=== PATIENT | female | born 2000 | race Two or more races ===

== ENCOUNTER 2020-03-13 01:59 | Day surgery (SDC) | payer BC ==
[2020-03-13] MEDS ORDERED: Ondansetron 4 MG/2 ML SDV IVPUSH ONE (02:06)
[2020-03-13] MEDS ORDERED: Sodium Chloride 0.9% 10 ML Syringe FLUSH PRN ×2 (02:06→05:35)
[2020-03-13] MEDS ORDERED: Sodium Chloride 0.9% 2.5 ML Syringe FLUSH PRN ×2 (02:06→05:35)
[2020-03-13] MEDS ORDERED: Sodium Chloride 0.9% 1,000 ML IV ONE (02:06)
--- NOTE | 2020-03-13 02:12 | EDM.PDOC ---
ED HPI GENERAL MEDICAL PROBLEM - General Chief Complaint: Abdominal Pain Stated Complaint: ABDOMINAL PAIN Time Seen by Provider: 03/13/20 02:01 - History of Present Illness INITIAL COMMENTS - FREE TEXT/NARRATIVE: HISTORY AND PHYSICAL: History of present illness: This is a 19-year-old female who is 2 para 0 who presents to the ER today secondary to suprapubic abdominal pain similar to her prior urinary tract infections. Patient reports that her last menstrual period was approximately 2 weeks ago. Patient reports that last month she had a spontaneous miscarriage. Patient reports that the pain started approximately 9 PM is mild and has been slowly getting worse. Patient reports that she had dysuria prior to arrival. Patient denies any frequency urgency. Patient denies any recent fevers, shakes, chills. Patient admits to nausea but no vomiting or diarrhea. Patient denies any constipation had normal bowel movement earlier today. Patient has any vaginal discharge or vaginal bleeding. Patient present she had sex approximately 2 days ago without any pain or discomfort. Patient reports normal appetite and ate dinner normally tonight. Review of systems: As per history of present illness and below otherwise all systems reviewed and negative. Past medical history: As per history of present illness and as reviewed below otherwise noncontributory. Surgical history: As per history of present illness and as reviewed below otherwise noncontributory. Social history: No reported history of drug or alcohol abuse. Family history: As per history of present illness and as reviewed below otherwise noncontributory. Physical exam: Constitutional: Patient is oriented to person, place, and time. Appears well- developed and well-nourished. No distress. HEENT: Moist mucous membranes Head: Normocephalic and atraumatic Eyes: Right eye exhibits no discharge. Left eye exhibits no discharge. No scleral icterus Neck: Normal range of motion. No tracheal deviation present. Cardiovascular: Normal rate and regular rhythm. Pulmonary: Effort normal, no respiratory distress. Abd: Soft, nondistended, no rebound/guarding, no psoas or obturator signs, no tenderness at Mcberney's point, no Mata's sign. Pt does not present with an exam that would be consistent with an acute surgical abdomen at this time. Tenderness to palpation suprapubic greater than left lower quadrant. Musculoskeletal: Normal range of motion Neurologic: Alert and oriented to person, place and time. Skin: [place], warm and dry. Psychiatric: Normal mood and affect. Behavior is normal. Judgment and thought content normal. Nursing note and vital signs have been reviewed Assessment and plan: Patient's beta-hCG came back at 1400. Patient's old labs were reviewed and appears that she had a beta-hCG in December that was 200. The beta-hCG was repeated and was down to 40. Patient reports that she had never gotten ultrasound at that time. She reports that she has had a period approximately 1 month after her miscarriage that was normal. She reports that she had a another period approximately 1 week ago that was heavier than usual with cramping that she reports felt like her prior miscarriage. Patient's ultrasound reveals no IUP, significant amount of complex free fluid in the cul-de-sac, no definite ectopic within the tubes but given her beta-hCG level suspicion for ectopic exists. 4:40 AM: Discussed with OB doctor seasonal package handler regarding assistance with likely ectopic . will be in route to evaluate patient in ER. Patient admitted to the service of Dr. Alejandro. Lower Abdomen Pain Score (Numeric/FACES): 8 - Related Data Allergies Allergy/AdvReac Type Severity Reaction Status Date / Time No Known Allergies Allergy Verified 03/13/20 02:23 Home Meds: Home Meds . [No Known Home Meds] 03/13/20 [History] Social & Family History - Tobacco Use Smoking Status *Q: Never Smoker Second Hand Smoke Exposure: No - Caffeine Use Caffeine Use: Reports: Soda - Recreational Drug Use Recreational Drug Use: No ED ROS GENERAL - Review of Systems Review Of Systems: Comprehensive ROS is negative, except as noted in HPI. ED EXAM, GENERAL - Physical Exam Exam: See Below Course - Vital Signs Last Recorded V/S: Last Vital Signs Temp 99 F 03/13/20 05:52 Pulse 94 03/13/20 05:52 Resp 14 03/13/20 05:52 BP 109/66 03/13/20 05:52 Pulse Ox 98 03/13/20 05:52 - Orders/Labs/Meds Orders: Active Orders 24 hr Category Date Time Status Patient Status [ADT] Routine ADT 03/13/20 05:35 Active Antiembolic Devices [RC] PER UNIT ROUTINE Care 03/13/20 05:36 Active Peripheral IV Care [RC] PRN Care 03/13/20 05:35 Active Verify Patient Consent Obtain [RC] PER UNIT ROUTINE Care 03/13/20 05:35 Active Vital Signs [RC] PER UNIT ROUTINE Care 03/13/20 05:35 Active Nothing per Oral Now Diet [DIET] Diet 03/13/20 Breakfast Active Lactated Ringers [Ringers, Lactated] 1,000 ml Med 03/13/20 05:45 Active IV ASDIRECTED Sodium Chloride 0.9% [Normal Saline] Med 03/13/20 05:35 Active 10 ml IV ASDIRECTED PRN Sodium Chloride 0.9% [Saline Flush] Med 03/13/20 02:06 Active 10 ml FLUSH ASDIRECTED PRN Sodium Chloride 0.9% [Saline Flush] Med 03/13/20 05:35 Active 10 ml FLUSH ASDIRECTED PRN Sodium Chloride 0.9% [Saline Flush] Med 03/13/20 02:06 Active 2.5 ml FLUSH ASDIRECTED PRN Sodium Chloride 0.9% [Saline Flush] Med 03/13/20 05:35 Active 2.5 ml FLUSH ASDIRECTED PRN Peripheral IV Insertion Adult [OM.PC] Urgent Oth 03/13/20 05:35 Ordered Saline Lock Insert [OM.PC] Stat Oth 03/13/20 02:06 Ordered Sequential Compression Device [OM.PC] Per Unit Routine Oth 03/13/20 05:35 Ordered Resuscitation Status Routine Resus Stat 03/13/20 05:35 Ordered Medication Orders Lactated Ringer's (Ringers, Lactated) 1,000 mls @ 125 mls/hr IV ASDIRECTED RYDER Sodium Chloride (Saline Flush) 10 ml FLUSH ASDIRECTED PRN PRN Reason: Keep Vein Open Sodium Chloride (Saline Flush) 2.5 ml FLUSH ASDIRECTED PRN PRN Reason: Keep Vein Open Sodium Chloride (Saline Flush) 10 ml FLUSH ASDIRECTED PRN PRN Reason: Keep Vein Open Sodium Chloride (Saline Flush) 2.5 ml FLUSH ASDIRECTED PRN PRN Reason: Keep Vein Open Sodium Chloride (Normal Saline) 10 ml IV ASDIRECTED PRN PRN Reason: IV Use Labs: Laboratory Tests 03/13/20 03/13/20 03/13/20 Range/Units 02:01 02:07 02:07 WBC 13.69 H (4.0-11.0) K/uL RBC 4.03 L (4.30-5.90) M/uL Hgb 12.2 (12.0-16.0) g/dL Hct 36.6 (36.0-46.0) % MCV 90.8 (80.0-98.0) fL MCH 30.3 (27.0-32.0) pg MCHC 33.3 (31.0-37.0) g/dL RDW Std Deviation 41.9 (28.0-62.0) fl RDW Coeff of Mohamud 13 (11.0-15.0) % Plt Count 289 (150-400) K/uL MPV 10.00 (7.40-12.00) fL Neut % (Auto) 63.2 (48.0-80.0) % Lymph % (Auto) 22.1 (16.0-40.0) % [place] % (Auto) 11.5 (0.0-15.0) % Eos % (Auto) 2.8 (0.0-7.0) % Baso % (Auto) 0.4 (0.0-1.5) % Neut # (Auto) 8.7 H (1.4-5.7) K/uL Lymph # (Auto) 3.0 H (0.6-2.4) K/uL [place] # (Auto) 1.6 H (0.0-0.8) K/uL Eos # (Auto) 0.4 (0.0-0.7) K/uL Baso # (Auto) 0.1 (0.0-0.1) K/uL Nucleated RBC % 0.0 /100WBC Nucleated RBCs # 0 K/uL Sodium 137 (136-145) mmol/L Potassium 3.5 (3.5-5.1) mmol/L Chloride 103 (98-107) mmol/L Carbon Dioxide 24.2 (21.0-32.0) mmol/L BUN 9 (7.0-18.0) mg/dL Creatinine 0.8 (0.6-1.0) mg/dL Est Cr Clr Drug Dosing 100.43 mL/min Estimated GFR (MDRD) > 60.0 ml/min Glucose 101 (74-106) mg/dL Calcium 8.1 L (8.5-10.1) mg/dL Total Bilirubin 0.3 (0.2-1.0) mg/dL AST 14 L (15-37) IU/L ALT 16 (14-63) IU/L Alkaline Phosphatase 67 (46-116) U/L Total Protein 7.6 (6.4-8.2) g/dL Albumin 4.2 (3.4-5.0) g/dL Globulin 3.4 (2.6-4.0) g/dL Albumin/Globulin Ratio 1.2 (0.9-1.6) Lipase 113 (73-393) U/L HCG, Quant mIU/mL Urine Color YELLOW Urine Appearance CLEAR Urine pH 6.5 (5.0-8.0) Ur Specific [place] 1.025 (1.001-1.035) Urine Protein NEGATIVE (NEGATIVE) mg/dL Urine Glucose (UA) NEGATIVE (NEGATIVE) mg/dL Urine Ketones TRACE H (NEGATIVE) mg/dL Urine Occult Blood NEGATIVE (NEGATIVE) Urine Nitrite NEGATIVE (NEGATIVE) Urine Bilirubin NEGATIVE (NEGATIVE) Urine Urobilinogen 1.0 (<2.0) EU/dL Ur Leukocyte Esterase NEGATIVE (NEGATIVE) COVID-19 (TABITHA) (NEGATIVE) Blood Type Antibody Screen 03/13/20 03/13/20 03/13/20 Range/Units 02:07 02:07 04:26 WBC (4.0-11.0) K/uL RBC (4.30-5.90) M/uL Hgb (12.0-16.0) g/dL Hct (36.0-46.0) % MCV (80.0-98.0) fL MCH (27.0-32.0) pg MCHC (31.0-37.0) g/dL RDW Std Deviation (28.0-62.0) fl RDW Coeff of Mohamud (11.0-15.0) % Plt Count (150-400) K/uL MPV (7.40-12.00) fL Neut % (Auto) (48.0-80.0) % Lymph % (Auto) (16.0-40.0) % [place] % (Auto) (0.0-15.0) % Eos % (Auto) (0.0-7.0) % Baso % (Auto) (0.0-1.5) % Neut # (Auto) (1.4-5.7) K/uL Lymph # (Auto) (0.6-2.4) K/uL [place] # (Auto) (0.0-0.8) K/uL Eos # (Auto) (0.0-0.7) K/uL Baso # (Auto) (0.0-0.1) K/uL Nucleated RBC % /100WBC Nucleated RBCs # K/uL Sodium (136-145) mmol/L Potassium (3.5-5.1) mmol/L Chloride (98-107) mmol/L Carbon Dioxide (21.0-32.0) mmol/L BUN (7.0-18.0) mg/dL Creatinine (0.6-1.0) mg/dL Est Cr Clr Drug Dosing mL/min Estimated GFR (MDRD) ml/min Glucose (74-106) mg/dL Calcium (8.5-10.1) mg/dL Total Bilirubin (0.2-1.0) mg/dL AST (15-37) IU/L ALT (14-63) IU/L Alkaline Phosphatase (46-116) U/L Total Protein (6.4-8.2) g/dL Albumin (3.4-5.0) g/dL Globulin (2.6-4.0) g/dL Albumin/Globulin Ratio (0.9-1.6) Lipase (73-393) U/L HCG, Quant 1341.0 mIU/mL Urine Color Urine Appearance Urine pH (5.0-8.0) Ur Specific [place] (1.001-1.035) Urine Protein (NEGATIVE) mg/dL Urine Glucose (UA) (NEGATIVE) mg/dL Urine Ketones (NEGATIVE) mg/dL Urine Occult Blood (NEGATIVE) Urine Nitrite (NEGATIVE) Urine Bilirubin (NEGATIVE) Urine Urobilinogen (<2.0) EU/dL Ur Leukocyte Esterase (NEGATIVE) COVID-19 (TABITHA) NEGATIVE (NEGATIVE) Blood Type A POSITIVE Antibody Screen NEGATIVE Meds: Medications Generic Name Dose Route Start Last Admin Trade Name Freq PRN Reason Stop Dose Admin Lactated Ringer's 1,000 mls @ 125 mls/hr 03/13/20 05:45 Ringers, Lactated IV ASDIRECTED RYDER Sodium Chloride 10 ml 03/13/20 02:06 Saline Flush FLUSH ASDIRECTED PRN Keep Vein Open Sodium Chloride 2.5 ml 03/13/20 02:06 Saline Flush FLUSH ASDIRECTED PRN Keep Vein Open Sodium Chloride 10 ml 03/13/20 05:35 Saline Flush FLUSH ASDIRECTED PRN Keep Vein Open Sodium Chloride 2.5 ml 03/13/20 05:35 Saline Flush FLUSH ASDIRECTED PRN Keep Vein Open Sodium Chloride 10 ml 03/13/20 05:35 Normal Saline IV ASDIRECTED PRN IV Use Discontinued Medications Generic Name Dose Route Start Last Admin Trade Name Freq PRN Reason Stop Dose Admin Dexamethasone Confirm 03/13/20 05:53 Dexamethasone Administered 03/13/20 05:54 Dose 20 mg .ROUTE .STK-MED ONE Fentanyl Confirm 03/13/20 05:54 Sublimaze Administered 03/13/20 05:55 Dose 250 mcg .ROUTE .STK-MED ONE Hydromorphone HCl 0.5 mg 03/13/20 03:20 03/13/20 03:44 Dilaudid IVPUSH 03/13/20 03:21 0.5 mg ONETIME ONE Administration Sodium Chloride 1,000 mls @ 999 mls/hr 03/13/20 02:06 03/13/20 02:13 Normal Saline IV 03/13/20 03:06 999 mls/hr .Bolus ONE Administration Ketorolac Tromethamine 30 mg 03/13/20 02:06 03/13/20 02:18 Toradol IM 03/13/20 02:07 Not Given ONETIME ONE Ketorolac Tromethamine 30 mg 03/13/20 02:18 03/13/20 02:20 Toradol IVPUSH 03/13/20 02:19 30 mg ONETIME ONE Administration Midazolam HCl Confirm 03/13/20 05:53 Versed 1 Mg/Ml Administered 03/13/20 05:54 Dose 2 mg .ROUTE .STK-MED ONE Ondansetron HCl 4 mg 03/13/20 02:06 03/13/20 02:14 Zofran IVPUSH 03/13/20 02:07 4 mg ONETIME ONE Administration Ondansetron HCl Confirm 03/13/20 05:53 Zofran Administered 03/13/20 05:54 Dose 8 mg .ROUTE .STK-MED ONE Propofol Confirm 03/13/20 05:53 Diprivan 20 Ml Administered 03/13/20 05:54 Dose 200 mg .ROUTE .STK-MED ONE Rocuronium [place] Confirm 03/13/20 05:53 Rocuronium [place] Administered 03/13/20 05:54 Dose 50 mg .ROUTE .STK-MED ONE Departure - Departure Time of Disposition: 06:06 Disposition: Admitted As Inpatient 66 Condition: Fair Clinical Impression: Ectopic - Discharge Information Sepsis Event Note (ED) - Evaluation Sepsis Screening Result: No Definite Risk - Focused Exam Vital Signs: Vital Signs Temp Pulse Resp BP Pulse Ox 03/13/20 05:52 99 F 94 14 109/66 98 03/13/20 04:58 66 14 96/48 L 99 03/13/20 04:10 84 18 96/53 L 97 03/13/20 03:34 108 H 18 103/57 L 99 03/13/20 02:30 99 107/58 L 03/13/20 02:03 99.1 F 124 H 18 98/77 97 - My Orders Last 24 Hours: My Active Orders 03/13/20 02:06 Sodium Chloride 0.9% [Saline Flush] 10 ml FLUSH ASDIRECTED PRN Sodium Chloride 0.9% [Saline Flush] 2.5 ml FLUSH ASDIRECTED PRN Saline Lock Insert [OM.PC] Stat - Assessment/Plan Last 24 Hours: My Active Orders 03/13/20 02:06 Sodium Chloride 0.9% [Saline Flush] 10 ml FLUSH ASDIRECTED PRN Sodium Chloride 0.9% [Saline Flush] 2.5 ml FLUSH ASDIRECTED PRN Saline Lock Insert [OM.PC] Stat
[2020-03-13] MEDS: Ketorolac 15 MG/ML SDV IM ONE ×2 (02:14→02:18)
[2020-03-13] MEDS ORDERED: Ketorolac 30 MG/ML SDV IVPUSH ONE (02:18)
[2020-03-13 02:40] LABS: BLOOD UREA NITROGEN,BUN 9 mg/dL (7.0-18.0); CARBON DIOXIDE,CO2 24.2 mmol/L (21.0-32.0); CHLORIDE,CL 103 mmol/L (98-107); GLUCOSE RANDOM 101 mg/dL (74-106); LIPASE 113 U/L (73-393); POTASSIUM,K 3.5 mmol/L (3.5-5.1); SODIUM,NA 137 mmol/L (136-145)
[2020-03-13] MEDS ORDERED: HYDROmorphone 1 MG/ML Syringe IVPUSH ONE (03:20)
--- NOTE | 2020-03-13 04:26 | US ---
INDICATION: Left lower quadrant pain, beta HCG 1400 TECHNIQUE: Ultrasound OB pelvis transvaginal. Real time escalante scale imaging of the pelvis was performed. COMPARISON: None FINDINGS: Sonographic imaging demonstrates no evidence of intrauterine . No fluid or debris in the endometrial canal. The cervix is closed. The myometrium appears normal. The ovaries are of normal size. Large amount of complex free fluid in the cul-de-sac. IMPRESSION: No evidence of a intrauterine . No fluid or debris in the endometrial canal. Large amount of complex free fluid in the cul-de-sac. No definitive evidence for ectopic although given the beta HCG levels and lack of intrauterine , ectopic cannot be excluded. Dictated by Margarito Chang MD @ 03/13/2020 4:24:52 AM Dictated by: Margarito Chang MD @ 03/13/2020 04:24:57 (Electronically Signed)
--- NOTE | 2020-03-13 05:27 | PCM.CONS ---
H&P History of Present Illness - General Date of Service: 03/13/20 Source of Information: Patient History Limitations: Reports: No Limitations - History of Present Illness Initial Comments - Free Text/Narative: Patient reports onset of cramping around 9:30 last night. Increased around 11, to the point where patient had difficulty walking due to the pain. Had heavy bleeding 1.5 weeks ago, lasting 5-6 days, similar to miscarriage in December, along with painful cramping. Denies fevers. Denies history of STI. Lower Abdomen Pain Score (Numeric/FACES): 8 - Related Data Allergies/Adverse Reactions: Allergies Allergy/AdvReac Type Severity Reaction Status Date / Time No Known Allergies Allergy Verified 03/13/20 02:23 Home Medications: Home Meds . 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 MOUNTER History: Reports: Endometriosis, , Spontaneous (x2) Other OB/BYN History: miscarriage 1 mo ago Social & Family History - Family History Family Medical History: Noncontributory - Tobacco Use Smoking Status *Q: Never Smoker Second Hand Smoke Exposure: No - Caffeine Use Caffeine Use: Reports: Soda - Recreational Drug Use Recreational Drug Use: No H&P Review of Systems - Review of Systems: Review Of Systems: See Below General: Reports: No Symptoms HEENT: Reports: No Symptoms Pulmonary: Reports: No Symptoms Cardiovascular: Reports: No Symptoms Gastrointestinal: Reports: Abdominal Pain Genitourinary: Reports: No Symptoms Musculoskeletal: Reports: No Symptoms Skin: Reports: No Symptoms Psychiatric: Reports: No Symptoms Neurological: Reports: No Symptoms Hematologic/Lymphatic: Reports: No Symptoms Immunologic: Reports: No Symptoms Exam - Exam Exam: See Below - Vital Signs Vital Signs: Last Vital Signs Temp 37.3 C 03/13/20 02:03 Pulse 66 03/13/20 04:58 Resp 14 03/13/20 04:58 BP 96/48 L 03/13/20 04:58 Pulse Ox 99 03/13/20 04:58 Weight: 56.245 kg - Exam General: Alert, Oriented, 4 Neck: Supple Lungs: Clear to Auscultation, Normal Respiratory Effort Cardiovascular: Regular Rate, Regular Rhythm GI/Abdominal Exam: No Distention, Tender (bilateral lower quadrants) (Female) Exam: Deferred Extremities: Non-Tender, No Pedal Edema Skin: Warm, Dry, Intact Neuro Extensive - Mental Status: Alert, Oriented x3, Normal Mood/Affect Psychiatric: Alert, Normal Affect, Normal Mood - Patient Data Lab Results Last 24 hrs: Laboratory Results - last 24 hr 03/13/20 03/13/20 03/13/20 Range/Units 02:01 02:07 02:07 WBC 13.69 H (4.0-11.0) K/uL RBC 4.03 L (4.30-5.90) M/uL Hgb 12.2 (12.0-16.0) g/dL Hct 36.6 (36.0-46.0) % MCV 90.8 (80.0-98.0) fL MCH 30.3 (27.0-32.0) pg MCHC 33.3 (31.0-37.0) g/dL RDW Std Deviation 41.9 (28.0-62.0) fl RDW Coeff of Mohamud 13 (11.0-15.0) % Plt Count 289 (150-400) K/uL MPV 10.00 (7.40-12.00) fL Neut % (Auto) 63.2 (48.0-80.0) % Lymph % (Auto) 22.1 (16.0-40.0) % [place] % (Auto) 11.5 (0.0-15.0) % Eos % (Auto) 2.8 (0.0-7.0) % Baso % (Auto) 0.4 (0.0-1.5) % Neut # (Auto) 8.7 H (1.4-5.7) K/uL Lymph # (Auto) 3.0 H (0.6-2.4) K/uL [place] # (Auto) 1.6 H (0.0-0.8) K/uL Eos # (Auto) 0.4 (0.0-0.7) K/uL Baso # (Auto) 0.1 (0.0-0.1) K/uL Nucleated RBC % 0.0 /100WBC Nucleated RBCs # 0 K/uL Sodium 137 (136-145) mmol/L Potassium 3.5 (3.5-5.1) mmol/L Chloride 103 (98-107) mmol/L Carbon Dioxide 24.2 (21.0-32.0) mmol/L BUN 9 (7.0-18.0) mg/dL Creatinine 0.8 (0.6-1.0) mg/dL Est Cr Clr Drug Dosing 100.43 mL/min Estimated GFR (MDRD) > 60.0 ml/min Glucose 101 (74-106) mg/dL Calcium 8.1 L (8.5-10.1) mg/dL Total Bilirubin 0.3 (0.2-1.0) mg/dL AST 14 L (15-37) IU/L ALT 16 (14-63) IU/L Alkaline Phosphatase 67 (46-116) U/L Total Protein 7.6 (6.4-8.2) g/dL Albumin 4.2 (3.4-5.0) g/dL Globulin 3.4 (2.6-4.0) g/dL Albumin/Globulin Ratio 1.2 (0.9-1.6) Lipase 113 (73-393) U/L HCG, Quant mIU/mL Urine Color YELLOW Urine Appearance CLEAR Urine pH 6.5 (5.0-8.0) Ur Specific [place] 1.025 (1.001-1.035) Urine Protein NEGATIVE (NEGATIVE) mg/dL Urine Glucose (UA) NEGATIVE (NEGATIVE) mg/dL Urine Ketones TRACE H (NEGATIVE) mg/dL Urine Occult Blood NEGATIVE (NEGATIVE) Urine Nitrite NEGATIVE (NEGATIVE) Urine Bilirubin NEGATIVE (NEGATIVE) Urine Urobilinogen 1.0 (<2.0) EU/dL Ur Leukocyte Esterase NEGATIVE (NEGATIVE) COVID-19 (TABITHA) (NEGATIVE) Blood Type Antibody Screen 03/13/20 03/13/20 03/13/20 Range/Units 02:07 02:07 04:26 WBC (4.0-11.0) K/uL RBC (4.30-5.90) M/uL Hgb (12.0-16.0) g/dL Hct (36.0-46.0) % MCV (80.0-98.0) fL MCH (27.0-32.0) pg MCHC (31.0-37.0) g/dL RDW Std Deviation (28.0-62.0) fl RDW Coeff of Mohamud (11.0-15.0) % Plt Count (150-400) K/uL MPV (7.40-12.00) fL Neut % (Auto) (48.0-80.0) % Lymph % (Auto) (16.0-40.0) % [place] % (Auto) (0.0-15.0) % Eos % (Auto) (0.0-7.0) % Baso % (Auto) (0.0-1.5) % Neut # (Auto) (1.4-5.7) K/uL Lymph # (Auto) (0.6-2.4) K/uL [place] # (Auto) (0.0-0.8) K/uL Eos # (Auto) (0.0-0.7) K/uL Baso # (Auto) (0.0-0.1) K/uL Nucleated RBC % /100WBC Nucleated RBCs # K/uL Sodium (136-145) mmol/L Potassium (3.5-5.1) mmol/L Chloride (98-107) mmol/L Carbon Dioxide (21.0-32.0) mmol/L BUN (7.0-18.0) mg/dL Creatinine (0.6-1.0) mg/dL Est Cr Clr Drug Dosing mL/min Estimated GFR (MDRD) ml/min Glucose (74-106) mg/dL Calcium (8.5-10.1) mg/dL Total Bilirubin (0.2-1.0) mg/dL AST (15-37) IU/L ALT (14-63) IU/L Alkaline Phosphatase (46-116) U/L Total Protein (6.4-8.2) g/dL Albumin (3.4-5.0) g/dL Globulin (2.6-4.0) g/dL Albumin/Globulin Ratio (0.9-1.6) Lipase (73-393) U/L HCG, Quant 1341.0 mIU/mL Urine Color Urine Appearance Urine pH (5.0-8.0) Ur Specific [place] (1.001-1.035) Urine Protein (NEGATIVE) mg/dL Urine Glucose (UA) (NEGATIVE) mg/dL Urine Ketones (NEGATIVE) mg/dL Urine Occult Blood (NEGATIVE) Urine Nitrite (NEGATIVE) Urine Bilirubin (NEGATIVE) Urine Urobilinogen (<2.0) EU/dL Ur Leukocyte Esterase (NEGATIVE) COVID-19 (TABITHA) NEGATIVE (NEGATIVE) Blood Type A POSITIVE Antibody Screen NEGATIVE Result Diagrams: 03/13/20 02:07 03/13/20 02:07 Sepsis Event Note - Evaluation Sepsis Screening Result: No Definite Risk - Focused Exam Vital Signs: Vital Signs Temp Pulse Resp BP Pulse Ox 03/13/20 04:58 66 14 96/48 L 99 03/13/20 04:10 84 18 96/53 L 97 03/13/20 03:34 108 H 18 103/57 L 99 03/13/20 02:30 99 107/58 L 03/13/20 02:03 37.3 C 124 H 18 98/77 97 Date Exam was Performed: 03/13/20 Time Exam was Performed: 05:18 *Q Meaningful Use (ADM) - VTE *Q VTE Mechanical Contraindications *Q: At Risk for Falls VTE Pharmacological Contraindications *Q: Active Hemorrhage VTE Anticoagulation Contraindications: Med/TX Not Indicated/Need - VTE Risk Assess *Q Each Risk Factor Represents 1 Point: or , Less than 1 Month Total Score 1 Point Risk Factors: 1 Each Risk Factor Represents 2 Points: None Total Score 2 Point Risk Factors: 0 Each Risk Factor Represents 3 Points: None Total Score 3 Point Risk Factors: 0 Each Risk Factor Represents 5 Points: None Total Score 5 Point Risk Factors: 0 Venous Thromboembolism Risk Factor Score *Q: 1 - Stroke *Q Aspirin Contraindications Stroke *Q: Other (Use Special Inst) (not indicated) Anticoagulation Contraindications Stroke *Q: Med/TX Not Indicated/Need Antithrombotic Contraindications Stroke *Q: Med/TX Not Indicated/Need Thrombolytic/Fibrinolytic Contraindications Stroke *Q: Med/TX Not Indicated/Need Statin Contraindications Stroke *Q: Med/TX Not Indicated/Need Rehabilitation Assessment Contraindication *Q: Med/tx not indicated/need - AMI *Q Aspirin Contraindications AMI *Q: Med/TX Not Indicated/Need Thrombolytic/Fibrinolytic Contraindications IV (AMI) *Q: Med/tx not indicated/need Statin Contraindications AMI *Q: Med/TX Not Indicated/Need Consult PN Assessment/Plan Procedures: Procedures BLOOD TYPING SEROLOGIC ABO (12/17/19) BLOOD TYPING SEROLOGIC RH(D) (12/17/19) CHORIONIC GONADOTROPIN TEST (12/20/19) CHYLMD TRACH DNA AMP PROBE (03/02/18) COMPLETE CBC W/AUTO DIFF WBC (12/10/18) CULTURE SCREEN ONLY (12/10/18) INFLUENZA ASSAY W/OPTIC (12/10/18) N.GONORRHOEAE DNA AMP PROB (03/02/18) RBC ANTIBODY SCREEN (12/17/19) ROUTINE VENIPUNCTURE (12/10/18) SARS-COV2 COVID-19 AMP PRB (12/06/19) STREP A AG IA (05/27/16) STREP A ASSAY W/OPTIC (12/10/18) URINALYSIS AUTO W/SCOPE (03/01/18) URINE CULTURE/COLONY COUNT (03/01/18) URINE TEST (03/01/18) X-RAY EXAM CHEST 2 VIEWS (10/29/18) (1) Ectopic SNOMED Code(s): 97206338 Code(s): O00.90 - UNSPECIFIED ECTOPIC WITHOUT INTRAUTERINE Current Visit: Yes Problem List Initiated/Reviewed/Updated: Yes Plan: 19yo with suspected ruptured ectopic based on US images. Discussed at hCG of 1400, I cannot be certain that she does not have an intrauterine , and that by performing surgery, could result in a m iscarriage. However, given the amount of complex free fluid in the pelvis, I suspect she has a ruptured ectopic , which requires surgery for patient stabilization and removal if actively bleeding. Appears to have corpus luteum of left ovary. Reviewed while most of her pain is on the left side, either fallopian tube could be involved. If actively bleeding, will plan to remove fallopian tube. Will plan to retain ovaries unless grossly abnormal. Plan for diagnostic laparoscopy, with possible unilateral or bilateral salpingectomy or oophorectomy, and any indicated procedures. Reviewed risks, including but not limited to, infection, bleeding, injury to surrounding organs/vessels/nerves, anesthesia complications, and . The patient voiced understanding and agreed to proceed with recommended surgery. I spoke with the patient's mother, with the patient's permission, to update on p gabbi of care. All questions answered.
[2020-03-13] MEDS ORDERED: Sodium Chloride 0.9% 10 ML SDV IV PRN (05:35)
[2020-03-13] MEDS ORDERED: Lactated Ringers 1,000 ML IV SCH (05:45)
[2020-03-13] MEDS ORDERED: Propofol 200 MG/20 ML SDV ONE (05:53)
[2020-03-13] MEDS ORDERED: Midazolam 1 MG/ML 2 ML SDV ONE (05:53)
[2020-03-13] MEDS ORDERED: Ondansetron 4 MG/2 ML SDV ONE (05:53)
[2020-03-13] MEDS ORDERED: Rocuronium Bromide 50 MG/5 ML Syringe ONE (05:53)
[2020-03-13] MEDS ORDERED: Dexamethasone 4 MG/ML 5 ML MDV ONE (05:53)
[2020-03-13] MEDS ORDERED: fentaNYL 250 MCG/5 ML SDV ONE ×2 (05:54→07:05)
[2020-03-13] MEDS ORDERED: Sugammadex Sodium 200 MG/2 ML VIAL ONE (06:06)
--- NOTE | 2020-03-13 06:45 | PCM.PREANE ---
Preanesthetic Assessment - Procedure Proposed Procedure: laproscopic oophrectomy for ectopic - Anesthesia/Transfusion/Family Hx Anesthesia History: No Prior Anesthesia Family History of Anesthesia Reaction: No Transfusion History: No Prior Transfusion(s) - Review of Systems General: No Symptoms Pulmonary: No Symptoms Cardiovascular: No Symptoms Gastrointestinal: No Symptoms Neurological: No Symptoms Other: Reports: None - Physical Assessment NPO Status Date: 03/12/20 NPO Status Time: 23:30 Vital Signs: Last Vital Signs Temp 99 F 03/13/20 05:52 Pulse 94 03/13/20 05:52 Resp 14 03/13/20 05:52 BP 109/66 03/13/20 05:52 Pulse Ox 98 03/13/20 05:52 Height: 5 ft 6 in Weight: 56.245 kg ASA Class: 1E Mental Status: Alert & Oriented x3 Dentition: Reports: Normal Dentition Thyro-Mental Finger Breadths: 3 Mouth Opening Finger Breadths: 3 ROM/Head Extension: Full Lungs: Clear to Auscultation, Normal Respiratory Effort Cardiovascular: Regular Rate, Regular Rhythm - Lab Values: Laboratory Last Values WBC 13.69 K/uL (4.0-11.0) H 03/13/20 02:07 RBC 4.03 M/uL (4.30-5.90) L 03/13/20 02:07 Hgb 12.2 g/dL (12.0-16.0) 03/13/20 02:07 Hct 36.6 % (36.0-46.0) 03/13/20 02:07 MCV 90.8 fL (80.0-98.0) 03/13/20 02:07 MCH 30.3 pg (27.0-32.0) 03/13/20 02:07 MCHC 33.3 g/dL (31.0-37.0) 03/13/20 02:07 RDW Std Deviation 41.9 fl (28.0-62.0) 03/13/20 02:07 RDW Coeff of Mohamud 13 % (11.0-15.0) 03/13/20 02:07 Plt Count 289 K/uL (150-400) 03/13/20 02:07 MPV 10.00 fL (7.40-12.00) 03/13/20 02:07 Neut % (Auto) 63.2 % (48.0-80.0) 03/13/20 02:07 Lymph % (Auto) 22.1 % (16.0-40.0) 03/13/20 02:07 [place] % (Auto) 11.5 % (0.0-15.0) 03/13/20 02:07 Eos % (Auto) 2.8 % (0.0-7.0) 03/13/20 02:07 Baso % (Auto) 0.4 % (0.0-1.5) 03/13/20 02:07 Neut # (Auto) 8.7 K/uL (1.4-5.7) H 03/13/20 02:07 Lymph # (Auto) 3.0 K/uL (0.6-2.4) H 03/13/20 02:07 [place] # (Auto) 1.6 K/uL (0.0-0.8) H 03/13/20 02:07 Eos # (Auto) 0.4 K/uL (0.0-0.7) 03/13/20 02:07 Baso # (Auto) 0.1 K/uL (0.0-0.1) 03/13/20 02:07 Nucleated RBC % 0.0 /100WBC 03/13/20 02:07 Nucleated RBCs # 0 K/uL 03/13/20 02:07 Sodium 137 mmol/L (136-145) 03/13/20 02:07 Potassium 3.5 mmol/L (3.5-5.1) 03/13/20 02:07 Chloride 103 mmol/L (98-107) 03/13/20 02:07 Carbon Dioxide 24.2 mmol/L (21.0-32.0) 03/13/20 02:07 BUN 9 mg/dL (7.0-18.0) 03/13/20 02:07 Creatinine 0.8 mg/dL (0.6-1.0) 03/13/20 02:07 Est Cr Clr Drug Dosing 100.43 mL/min 03/13/20 02:07 Estimated GFR (MDRD) > 60.0 ml/min 03/13/20 02:07 Glucose 101 mg/dL (74-106) 03/13/20 02:07 Calcium 8.1 mg/dL (8.5-10.1) L 03/13/20 02:07 Total Bilirubin 0.3 mg/dL (0.2-1.0) 03/13/20 02:07 AST 14 IU/L (15-37) L 03/13/20 02:07 ALT 16 IU/L (14-63) 03/13/20 02:07 Alkaline Phosphatase 67 U/L (46-116) 03/13/20 02:07 Total Protein 7.6 g/dL (6.4-8.2) 03/13/20 02:07 Albumin 4.2 g/dL (3.4-5.0) 03/13/20 02:07 Globulin 3.4 g/dL (2.6-4.0) 03/13/20 02:07 Albumin/Globulin Ratio 1.2 (0.9-1.6) 03/13/20 02:07 Lipase 113 U/L (73-393) 03/13/20 02:07 HCG, Quant 1341.0 mIU/mL 03/13/20 02:07 Urine Color YELLOW 03/13/20 02:01 Urine Appearance CLEAR 03/13/20 02:01 Urine pH 6.5 (5.0-8.0) 03/13/20 02:01 Ur Specific [place] 1.025 (1.001-1.035) 03/13/20 02:01 Urine Protein NEGATIVE mg/dL (NEGATIVE) 03/13/20 02:01 Urine Glucose (UA) NEGATIVE mg/dL (NEGATIVE) 03/13/20 02:01 Urine Ketones TRACE mg/dL (NEGATIVE) H 03/13/20 02:01 Urine Occult Blood NEGATIVE (NEGATIVE) 03/13/20 02:01 Urine Nitrite NEGATIVE (NEGATIVE) 03/13/20 02:01 Urine Bilirubin NEGATIVE (NEGATIVE) 03/13/20 02:01 Urine Urobilinogen 1.0 EU/dL (<2.0) 03/13/20 02:01 Ur Leukocyte Esterase NEGATIVE (NEGATIVE) 03/13/20 02:01 COVID-19 (TABITHA) NEGATIVE (NEGATIVE) 03/13/20 04:26 Blood Type A POSITIVE 03/13/20 02:07 Antibody Screen NEGATIVE 03/13/20 02:07 - Allergies Allergies/Adverse Reactions: Allergies Allergy/AdvReac Type Severity Reaction Status Date / Time No Known Allergies Allergy Verified 03/13/20 02:23 - Blood Blood Available: Yes Product(s) Available: PRBC - Anesthesia Plan Pre-Op Medication Ordered: None - Acknowledgements Anesthesia Type Planned: General Anesthesia Pt an Appropriate Candidate for the Planned Anesthesia: Yes Alternatives and Risks of Anesthesia Discussed w Pt/Guardian: Yes Pt/Guardian Understands and Agrees with Anesthesia Plan: Yes PreAnesthesia Questionnaire HEENT History: Reports: None Cardiovascular History: Reports: None Respiratory History: Reports: None Gastrointestinal History: Reports: None Genitourinary History: Reports: None 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 , Endometriosis, , Spontaneous (x2) LMP (Approximate): Other OB/BYN History: miscarriage 1 mo ago Musculoskeletal History: Reports: None Neurological History: Reports: None Psychiatric History: Reports: None Endocrine/Metabolic History: Reports: None Hematologic History: Reports: None Immunologic History: Reports: None Oncologic (Cancer) History: Reports: None Dermatologic History: Reports: None - Infectious Disease History Infectious Disease History: Reports: None - Past Surgical History Head Surgeries/Procedures: Reports: None - Past Imaging History Past Imaging History: Reports: None - SUBSTANCE USE Smoking Status *Q: Current Every Day Smoker Tobacco Use Within Last Twelve Months: Vaping Second Hand Smoke Exposure: No Recreational Drug Use History: No - HOME MEDS Home Medications: Home Meds . [No Known Home Meds] 03/13/20 [History] - CURRENT (IN HOUSE) MEDS Current Meds: Current Medications Lactated Ringer's (Ringers, Lactated) 1,000 mls @ 125 mls/hr IV ASDIRECTED RYDER Sodium Chloride (Saline Flush) 10 ml FLUSH ASDIRECTED PRN PRN Reason: Keep Vein Open Sodium Chloride (Saline Flush) 2.5 ml FLUSH ASDIRECTED PRN PRN Reason: Keep Vein Open Sodium Chloride (Saline Flush) 10 ml FLUSH ASDIRECTED PRN PRN Reason: Keep Vein Open Sodium Chloride (Saline Flush) 2.5 ml FLUSH ASDIRECTED PRN PRN Reason: Keep Vein Open Sodium Chloride (Normal Saline) 10 ml IV ASDIRECTED PRN PRN Reason: IV Use Discontinued Medications Dexamethasone (Dexamethasone) Confirm Administered Dose 20 mg .ROUTE .STK-MED ONE Stop: 03/13/20 05:54 Fentanyl (Sublimaze) Confirm Administered Dose 250 mcg .ROUTE .STK-MED ONE Stop: 03/13/20 05:55 Hydromorphone HCl (Dilaudid) 0.5 mg IVPUSH ONETIME ONE Stop: 03/13/20 03:21 Last Admin: 03/13/20 03:44 Dose: 0.5 mg Documented by: Sodium Chloride (Normal Saline) 1,000 mls @ 999 mls/hr IV .Bolus ONE Stop: 03/13/20 03:06 Last Admin: 03/13/20 02:13 Dose: 999 mls/hr Documented by: Ketorolac Tromethamine (Toradol) 30 mg IM ONETIME ONE Stop: 03/13/20 02:07 Last Admin: 03/13/20 02:18 Dose: Not Given Documented by: Ketorolac Tromethamine (Toradol) 30 mg IVPUSH ONETIME ONE Stop: 03/13/20 02:19 Last Admin: 03/13/20 02:20 Dose: 30 mg Documented by: Midazolam HCl (Versed 1 Mg/Ml) Confirm Administered Dose 2 mg .ROUTE .STK-MED ONE Stop: 03/13/20 05:54 Ondansetron HCl (Zofran) 4 mg IVPUSH ONETIME ONE Stop: 03/13/20 02:07 Last Admin: 03/13/20 02:14 Dose: 4 mg Documented by: Ondansetron HCl (Zofran) Confirm Administered Dose 8 mg .ROUTE .STK-MED ONE Stop: 03/13/20 05:54 Propofol (Diprivan 20 Ml) Confirm Administered Dose 200 mg .ROUTE .STK-MED ONE Stop: 03/13/20 05:54 Rocuronium Mcbrides (Rocuronium Mcbrides) Confirm Administered Dose 50 mg .ROUTE .STK-MED ONE Stop: 03/13/20 05:54 Sugammadex Sodium (Bridion) Confirm Administered Dose 200 mg .ROUTE .STK-MED ONE Stop: 03/13/20 06:07
--- NOTE | 2020-03-13 07:48 | PCM.OPNOTE ---
- General Post-Op/Procedure Note Date of Surgery/Procedure: 03/13/20 Operative Procedure(s): Diagnostic laparoscopy. Evacuation of hemoperitoneum. Left fimbriectomy Findings: Moderate amount of blood and clot in pelvis. Ectopic with active bleeding appearing to be extruding from left fimbria. Normal-appearing uterus, bilateral ovaries, and right fallopian tube. Pre Op Diagnosis: Suspected ruptured ectopic Post-Op Diagnosis: Suspected ruptured ectopic Anesthesia Technique: General ET Tube Primary Surgeon: Lorena Alejandro Anesthesia Provider: Castro Tinajero Canal Structure Operator: Mago Amos Pathology: Left fimbria and products of conception Fluid Replacement, Intraop: 1,200 EBL in mLs: 350 Complications: None Condition: Fair
--- NOTE | 2020-03-13 10:57 | PCM48HPAN ---
Post Anesthesia Note - EVALUATION WITHIN 48HRS OF ANESTHETIC Vital Signs in Normal Range: Yes Patient Participated in Evaluation: Yes Respiratory Function Stable: Yes Airway Patent: Yes Cardiovascular Function Stable: Yes Hydration Status Stable: Yes Pain Control Satisfactory: Yes Nausea and Vomiting Control Satisfactory: Yes Mental Status Recovered: Yes Vital Signs: Last Vital Signs Temp 97.5 F 03/13/20 08:25 Pulse 80 03/13/20 08:55 Resp 18 03/13/20 08:55 BP 128/75 03/13/20 08:55 Pulse Ox 99 03/13/20 08:55
--- NOTE | 2020-03-13 15:34 | OR ---
SURGEON: Lorena Alejandro MD DATE OF PROCEDURE: 03/13/2020 PREOPERATIVE DIAGNOSES: 1. A 19-year-old G3, P0-0-2-0. 2. Suspected ruptured ectopic . POSTOPERATIVE DIAGNOSES: 1. A 19-year-old G3, P0-0-2-0. 2. Suspected ruptured ectopic . PROCEDURE: Diagnostic laparoscopy, evacuation of hemoperitoneum, left fimbriectomy. ANESTHESIA: General endotracheal by . PRIMARY SURGEON: Lorena Alejandro MD. FIELD PIPE LINES SUPERVISOR: Mago Amos, medical student. IV FLUIDS: 1200 mL of LR. ESTIMATED BLOOD LOSS: 350 mL. URINE OUTPUT: Bladder drained prior to procedure. INDICATIONS: This is a 19-year-old G3, P0-0-2-0, who presented to the ER with complaints of left lower quadrant pain for several hours. On presentation, she was found to be tachycardic with heart rate in the 120s. Blood pressure was normal. CBC was ordered and her hemoglobin was 12.2. A beta hCG was 1400. Pelvic ultrasound was obtained, which did not show a definite ectopic , however, was concerning given no intrauterine and a complex fluid in the pelvis consistent with blood. I was consulted and discussed with the patient that due to concern for ruptured ectopic , the recommendation would be to undergo laparoscopic removal. The risks and benefits of the procedure were reviewed with the patient. The patient was taken to the operating room. DESCRIPTION OF PROCEDURE: The patient was taken to the operating room, where general anesthesia was obtained without difficulty. She was placed in dorsal lithotomy position with legs in Yellofin stirrups. Bladder was drained with a Rahman catheter. She was prepared and draped in the normal sterile fashion. A Graves speculum was inserted into the vagina. A [employer] uterine manipulator was inserted into the cervix. Surgeon's gloves were changed. Attention was then turned to the laparoscopic portion of the procedure. A 5 mm infraumbilical incision was made with a scalpel. A 5 mm trocar was inserted into the abdomen under direct laparoscopic visualization. A right lower quadrant 5 mm port was inserted under direct visualization. The majority of the hemoperitoneum was evacuated with suction auto claims adjuster. Bilateral tubes were evaluated and it appeared that the left fimbria had active bleeding with extrusion of products of conception. A decision was made to proceed with a left fimbriectomy. A left lower quadrant 12 mm port was inserted under direct laparoscopic visualization. The LigaSure was used to clamp, coagulate, and transect the left fimbria at suspected ectopic . The laparoscopic catch bag was inserted into 5 mm port and used to remove the left fimbria and clots with product of conception. The pelvis was thoroughly irrigated and inspected and was hemostatic. The fascia of 12-mm port was closed with 0 Vicryl suture using Guerrero-Ruby. The skin was closed with 4-0 Monocryl in subcuticular fashion. The incision was covered with bandage. The Graves speculum was re-inserted into the vagina. Hulka uterine manipulator was removed and hemostasis was noted. The speculum was removed from vagina. Patient was awakened and taken to the recovery room in stable condition. All sponge, lap, and instrument counts were correct x2. [id number] / MODL /[id number] MTDD
== END 2020-03-13 09:20 | disposition home or self-care (01) ==
LOC: MW.ED 01:59 → MW.SDS 05:28
PROVIDERS: ATTEND Obstetrics & Gynecology
DX: O00.102 Left tubal pregnancy without intrauterine pregnancy (principal); F17.290 Nicotine dependence, other tobacco product, uncomplicated; R00.0 Tachycardia, unspecified; Z11.59 Encounter for screening for other viral diseases
CPT/HCPCS: 36415; 59151; 76801; 80053; 81003; 83690; 84702; 85025; 86850; 86900; 86901; 87635; 96361; 96374; 96375; 99285; J1100; J1170; J1885; J2250; J2405; J2704; J3010; J3490; J7030; 00840; 88305; 99284; U0002

== ENCOUNTER 2021-04-10 17:36 | Emergency (ER) | payer BC ==
--- NOTE | 2021-04-10 20:12 | EDM.PDOC ---
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 She has a little bit of cramping as well. She is a Ab1 which was an ectopic and surgically removed. She had an ultrasound on 31 March of this year that showed an intrauterine and by the dates of an ultrasound she says she is 7 weeks and 2 days today. She not weak and dizzy or sick. The patient used to vape Juul vape but no longer does so. She is not diabetic. She is unvaccinated for COVID-19. This patient was seen and evaluated during the 2019 SARS-CoV-2 novel coronavirus pandemic period. Community viral transmission is ongoing at time of this encounter and the emergency department is operating under pandemic response procedures. Review of systems: As per history of present illness and below otherwise all systems reviewed and negative. Past medical history: As per history of present illness and as reviewed below otherwise noncontributory. Surgical history: As per history of present illness and as reviewed below otherwise noncontributory. Social history: No reported history of drug or alcohol abuse. Family history: As per history of present illness and as reviewed below otherwise noncontributory. Physical exam: Constitutional - well developed, well-nourished and in no acute distress HEENT - normocephalic, no evidence of trauma - external nose and mouth normal - no mass in neck and no JVD - mucosae moist EYES - full EOM, PERRL, no icterus - no evidence of inflammation, injection, or drainage Respiratory - no respiratory distress, equal bilateral expansion, lungs clear to auscultation and no abnormal lung sounds Cardiovascular - Regular Rhythm with S1 and S2 appreciated and no murmur, gallop or rub. GI - abdomen soft without distension or organomegaly - normal bowel sounds - no guard or rebound Musculoskeletal no gross deformity of long bones or joints - no tenderness, swelling or edema Neurologic - Alert and oriented times four - CN II-XII grossly intact - motor sensory and coordination symmetrically normal Psychiatric - appropriate mood and affect with normal thought content Hematologic - No petechiae or purpura - mucosa appropriate color and sclera not pale - normal nail bed color and refill Integument - no rash or evidence of trauma - normal turgor Diagnostics: [] Therapeutics: [] Impression: [] Plan: [] Definitive disposition and diagnosis as appropriate pending reevaluation and review of above. 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 , Endometriosis, , Spontaneous Other TRIM AND BURR OPERATOR History: miscarriage 1 mo ago Musculoskeletal History: Reports: None Neurological History: Reports: None Psychiatric History: Reports: None Endocrine/Metabolic History: Reports: None Hematologic History: Reports: None Immunologic History: Reports: None Oncologic (Cancer) History: Reports: None Dermatologic History: Reports: None - Infectious Disease History Infectious Disease History: Reports: None - Past Surgical History Head Surgeries/Procedures: Reports: None Female Surgical History: Reports: Other (See Below) - Past Imaging History Past Imaging History: Reports: None Social & Family History - Family History Family Medical History: No Pertinent Family History - Tobacco Use Tobacco Use Status *Q: Never Tobacco User - Caffeine Use Caffeine Use: Reports: None - Recreational Drug Use Recreational Drug Use: No ED ROS GENERAL - Review of Systems Review Of Systems: Comprehensive ROS is negative, except as noted in HPI. ED EXAM, GENERAL - Physical Exam Exam: See Below Free Text/Narrative:: My physical exam is in the HPI Course - Vital Signs Text/Narrative:: 2108 hrs. laboratory results were not reported but the patient has eloped. She did not let us know. Last Recorded V/S: Last Vital Signs Temp 36.9 C 04/10/21 19:40 Pulse 76 04/10/21 19:40 Resp 18 04/10/21 19:40 BP 100/57 L 04/10/21 19:40 Pulse Ox 100 04/10/21 19:40 Departure - Departure Time of Disposition: 21:07 Disposition: Eloped 07 Condition: Good Clinical Impression: Threatened - Discharge Information Instructions: Threatened Miscarriage, [id number] Referrals: Manny Bajwa MD [Primary Care Provider] - Forms: ED Department Discharge Additional Instructions: [facility] [address] [place] [id number] [facility] [address] [place] [id number] The following information is given to patients seen in the emergency department who are being discharged to home. This information is to outline your options for follow-up care. We provide all patients seen in our emergency department with a follow-up referral. The need for follow-up, as well as the timing and circumstances, are variable depending upon the specifics of your emergency department visit. If you don't have a primary care physician on staff, we will provide you with a referral. We always advise you to contact your personal physician following an emergency department visit to inform them of the circumstance of the visit and for follow-up with them and/or the need for any referrals to a consulting specialist. The emergency department will also refer you to a specialist when appropriate. This referral assures that you have the opportunity for follow-up care with a specialist. All of these measure are taken in an effort to provide you with optimal care, which includes your follow-up. Under all circumstances we always encourage you to contact your private physician who remains a resource for coordinating your care. When calling for follow-up care, please make the office aware that this follow-up is from your recent emergency room visit. If for any reason you are refused follow-up, please contact the [facility] Emergency Department at and asked to speak to the emergency department charge nurse. Sepsis Event Note (ED) - Focused Exam Vital Signs: Vital Signs Temp Pulse Resp BP Pulse Ox 04/10/21 19:40 36.9 C 76 18 100/57 L 100
== END 2021-04-10 21:12 | disposition left against medical advice (07) ==
LOC: MW.ED 17:36
DX: O20.0 Threatened abortion (principal); Z3A.01 Less than 8 weeks gestation of pregnancy
CPT/HCPCS: 99283